=== PATIENT | male | born 1950 | race Caucasian/White ===

== ENCOUNTER → 2022-01-26 13:02 | Outpatient (BNVA) | payer MEDICARE, BC, SELFPAY | PROVIDERS: PCP Internal Medicine; Visit Provider Psychiatry & Neurology Neurology | DX: F09 Unspecified mental disorder due to known physiological condition (principal); F41.9 Anxiety disorder, unspecified; F32.A Depression, unspecified | CPT/HCPCS: 99202 ==

== ENCOUNTER → 2022-05-27 14:25 | Outpatient (BNVA) | payer MEDICARE, SELFPAY | PROVIDERS: PCP Family Medicine; Visit Provider Nurse Practitioner Family | DX: F09 Unspecified mental disorder due to known physiological condition (principal); F32.A Depression, unspecified; F41.9 Anxiety disorder, unspecified; Z79.899 Other long term (current) drug therapy | CPT/HCPCS: 99212 ==

== ENCOUNTER 2022-11-10 08:51 | Outpatient (AMB) | payer MEDICARE, SELFPAY ==
--- NOTE | 2022-11-10 08:58 | MHC.OFFVIS ---
Intake Vital Signs 11/10/22 08:59 Height 5 ft 7 in Weight 184 lb 6 oz BMI 28.9 BP 132/84 Blood Pressure Location Rt brachial Position Sitting Pulse 86 Pulse Source Pulse Oximeter Pulse Oximetry (%) 98 Oxygen Delivery Method Room Air Intake Visit Reasons: f/u Memory Loss wants to see MD only-confirmed Intake Note: Patient presents for memory loss Allergies sulfacetamide Allergy (Verified 11/10/22 09:03) Unknown Medication List - Last Reconciled 11/10/22 by Lillie Green MD citalopram 10 mg PO DAILY HPI HPI Comments History of Present Illness Details 72 y/o male patient presents with his sister for follow up of memory loss related anxiety. He lost his in May 2022 and has been having a tough time dealing with.He stopped citalopram for 3 weeks but his sister is in charge of medications .He restarted citalopram 1 weeks ago. He eats better and sleeps better, too. Pt's sister states that patient does not like to drink water, he only drinks coffee and juice. 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 [facility] Medical History Anxiety Degenerative joint disease Depression Erectile dysfunction Fatty liver HTN (hypertension) Osteopenia PVC (premature ventricular contraction) Transient global amnesia Surgical History History of surgery on lower extremity Family History Mother Dementia Father No known problems Social History Household Members: Other Household Members Other:: Ex- Alcohol intake: current Alcohol intake frequency: holidays/special occasions only Alcohol type: wine Patient Tobacco Use Status: Former Tobacco user Quit Date: stopped 50 yrs ago Physical Exam Vital Signs: Last Vital Signs Pulse 86 11/10/22 08:59 BP 132/84 11/10/22 08:59 Pulse Ox 98 11/10/22 08:59 Oxygen Delivery Method Room Air 11/10/22 08:59 BMI result Body Mass Index 28.9 Const Orientation/consciousness: patient oriented x3 Eyes Pupils: Equal, round and reactive pupils present Neuro General: patient oriented x3, tone normal, moves all extremities and no focal motor deficits Cranial nerves: Yes Facial sensation intact/muscles of mastication intact, Yes Equal, round and reactive pupils present, Yes Bilaterally intact EOM present, Yes Nystagmus not present, Yes Normal facial strength present, Yes Midline tongue present, Yes Symmetric palate elevation present and Yes Ability to bilaterally elevate shoulders present Cognition (Neuro): normal cognition Gait exam (Neuro): Other gait observations present (mild slowness, stooped) Motor exam (neuro): 5/5 motor strength present throughout and Normal motor muscle tone present throughout Coordination: [id number] test normal Psych Appearance: grossly normal Affect: normal affect Attitude: cooperative Assessment & Plan Assessment & Plan (1) Cognitive disorder: Comment: He did well on MMSE - His cognitive deficit is likely related to his poorly controlled anxiety Code(s): F09 - Unspecified mental disorder due to known physiological condition (2) Depression: Code(s): F32.A - Depression, unspecified (3) Anxiety: Code(s): F41.9 - Anxiety disorder, unspecified Plan Advised patient to continue to take citalopram 10mg qd. Advised patient to have well balanced diet. Continue exercise. \reviewed Dr. Cyr's notes. Coding Level of Care Code Est Pt Level 4 (95464) Diagnoses Cognitive disorder F09 Depression F32.A Anxiety F41.9
[2022-11-10 08:59] VITALS: BP 132/84; PULSE 86; O2SAT 98; BMI 28.9
== END 2022-11-10 09:27 | disposition home or self-care (01) ==
PROVIDERS: PCP Family Medicine; Visit Provider Psychiatry & Neurology Neurology
DX: R41.89 Other symptoms and signs involving cognitive functions and awareness (principal); F32.A Depression, unspecified; F41.9 Anxiety disorder, unspecified
CPT/HCPCS: 99214

== ENCOUNTER → 2022-11-10 08:51 | Outpatient (BNVA) | payer MEDICARE, SELFPAY | PROVIDERS: PCP Family Medicine; Visit Provider Psychiatry & Neurology Neurology | DX: F09 Unspecified mental disorder due to known physiological condition (principal); F32.A Depression, unspecified; F41.9 Anxiety disorder, unspecified; Z79.899 Other long term (current) drug therapy | CPT/HCPCS: 99212 ==

== ENCOUNTER 2023-02-20 12:56 | Outpatient (AMB) | payer MEDICARE, SELFPAY ==
--- NOTE | 2023-02-20 13:01 | MHC.OFFVIS ---
Intake Vital Signs 02/20/23 13:02 Height 5 ft 7 in Weight 194 lb 8 oz BMI 30.5 BP 146/88 H Blood Pressure Location Rt brachial Position Sitting Respiration 17 Pulse 69 Pulse Source Pulse Oximeter Pulse Oximetry (%) 99 Oxygen Delivery Method Room Air Intake Visit Reasons: f/u Memory Loss wants to see MD only-CONFIRMED Intake Note: Pt presents to the office for follow up for memory loss. He is here with his sister Ashley, who states he is doing well. Allergies sulfacetamide Allergy (Verified 02/20/23 13:01) Unknown Medication List - Last Reconciled 02/20/23 by Lillie Green MD citalopram 10 mg PO DAILY HPI HPI Comments History of Present Illness Details 72 y/o male patient presents with his sister for follow up of memory loss related anxiety. He lost his in May 2022 and has been having a tough time dealing with.He is on citalopram 10mg and his mood is stable . He eats better and sleeps better, too. Pt's sister states that patient does not like to drink water, he only drinks coffee and juice. 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 [facility] Medical History Anxiety Degenerative joint disease Depression Erectile dysfunction Fatty liver HTN (hypertension) Osteopenia PVC (premature ventricular contraction) Transient global amnesia Surgical History History of surgery on lower extremity Family History Mother Dementia Father No known problems Social History Household Members: Other Household Members Other:: Ex- Alcohol intake: current Alcohol intake frequency: holidays/special occasions only Alcohol type: wine Patient Tobacco Use Status: Former Tobacco user Quit Date: stopped 50 yrs ago Physical Exam Vital Signs: Last Vital Signs Pulse 69 02/20/23 13:02 Resp 17 02/20/23 13:02 BP 146/88 H 02/20/23 13:02 Pulse Ox 99 02/20/23 13:02 Oxygen Delivery Method Room Air 10/30/23 13:02 BMI result Body Mass Index 30.5 Const Orientation/consciousness: patient oriented x3 Eyes Pupils: Equal, round and reactive pupils present Neuro General: patient oriented x3, tone normal, moves all extremities and no focal motor deficits Cranial nerves: Yes Facial sensation intact/muscles of mastication intact, Yes Equal, round and reactive pupils present, Yes Bilaterally intact EOM present, Yes Nystagmus not present, Yes Normal facial strength present, Yes Midline tongue present, Yes Symmetric palate elevation present and Yes Ability to bilaterally elevate shoulders present Cognition (Neuro): normal cognition Gait exam (Neuro): Other gait observations present (mild slowness, stooped) Motor exam (neuro): 5/5 motor strength present throughout and Normal motor muscle tone present throughout Coordination: [id number] test normal Psych Appearance: grossly normal Affect: normal affect Attitude: cooperative Orientation What is the (year) (season) (date) (day) (month)?: year, season, date, day and month Where are we (state) (county) (town or city) (hospital) (floor)?: state, town or city, hospital/clinic and floor Registration Name of 3 unrelated objects clearly and slowly, then ask patient to repeat all 3 of them. (1st repeat determines score. Make sure they can repeat all three): object 1, object 2 and object 3 Attention & Calculation (CHOOSE ONE) Spell WORLD backwards (DLROW): 4 letters Recall Ask patient to repeat the 3 items from question #3.: object 2 Language Show patient a wristwatch & ask what it is. Repeat for pencil.: watch and pencil Ask the patient to repeat the phrase 'No ifs, ands, or buts' after you.: correct Ask the patient to 'take a piece of paper with their right hand' 'fold paper in half' 'place paper on floor': take paper in right hand, fold paper in half and place paper on floor Print the sentence 'CLOSE YOUR EYES' on a piece. If patient actually closes eyes then score.: followed written direction Give patient a blank piece of paper & ask to write a sentence. Score if it contains a noun & verb.: sentence contains subject and verb Ask patient to copy figure of intersecting pentagons exactly. Score if all 10 angles & 2 intersects are included.: all 10 angles present & 2 are intersected Score Score: 26 Assessment & Plan Assessment & Plan (1) Cognitive disorder: Comment: He did well on MMSE - His cognitive deficit is likely related to his poorly controlled anxiety Code(s): F09 - Unspecified mental disorder due to known physiological condition (2) Depression: Code(s): F32.A - Depression, unspecified (3) Anxiety: Code(s): F41.9 - Anxiety disorder, unspecified Plan Advised patient to continue to take citalopram 10mg qd. Advised patient to have well balanced diet. Continue exercise. I will trial him on namenda XR 7 mg qd Medications: New memantine (Namenda XR) 7 mg PO DAILY 30 ea 6RF Coding Level of Care Code Est Pt Level 4 (40096) Diagnoses Cognitive disorder F09 Depression F32.A Anxiety F41.9
[2023-02-20 13:02] VITALS: BP 146/88; PULSE 69; RESP 17; O2SAT 99; BMI 30.5
== END 2023-02-20 13:28 | disposition home or self-care (01) ==
PROVIDERS: PCP Family Medicine; Visit Provider Psychiatry & Neurology Neurology
DX: F41.9 Anxiety disorder, unspecified (principal); F06.70 Mild neurocognitive disorder due to known physiological condition without behavioral disturbance; F32.A Depression, unspecified; Z63.4 Disappearance and death of family member
CPT/HCPCS: 99214

== ENCOUNTER → 2023-02-20 12:56 | Outpatient (BNVA) | payer MEDICARE, SELFPAY | PROVIDERS: PCP Family Medicine; Visit Provider Psychiatry & Neurology Neurology | DX: F09 Unspecified mental disorder due to known physiological condition (principal); F32.A Depression, unspecified; F41.9 Anxiety disorder, unspecified | CPT/HCPCS: 99212 ==

== ENCOUNTER 2023-08-22 14:03 | Outpatient (AMB) | payer MEDICARE, SELFPAY ==
--- NOTE | 2023-08-22 14:05 | A.OFFVIS_ITS ---
Vital Signs 08/22/23 14:06 Height 5 ft 7 in Weight 203 lb 6 oz BMI 31.8 BP 146/80 H Blood Pressure Location Rt brachial Position Sitting Respiration 16 Pulse 84 Pulse Source Pulse Oximeter Pulse Oximetry (%) 97 Oxygen Delivery Method Room Air Intake Visit Reasons: 6 mnts f/u for Memory loss-CONF Intake Note: Pt presents for 6 month follow up for memory los. Transformation Lead Required: No Allergies sulfacetamide Allergy (Verified 08/22/23 14:06) Unknown Medication List - Last Reconciled 08/22/23 by Lillie Green MD citalopram 10 mg PO DAILY memantine (Namenda XR) 7 mg PO DAILY HPI Comments Details: 73 y/o male patient presents with his sister for follow up of memory loss related anxiety. He lost his in May 2022 and has been having a tough time dealing with.He is on citalopram 10mg and his mood is stable . He eats better and sleeps better, too. Pt's sister states that patient does not like to drink water, he only drinks coffee and juice. 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 [facility] Medical History Degenerative joint disease Erectile dysfunction Fatty liver Depression Anxiety Transient global amnesia HTN (hypertension) Osteopenia PVC (premature ventricular contraction) Surgical History History of surgery on lower extremity Family History Mother Dementia Father No known problems Social History Household Members: Other Household Members Other:: Ex- Alcohol intake: current Alcohol intake frequency: holidays/special occasions only Alcohol type: wine Patient Tobacco Use Status: Former Tobacco user Quit Date: stopped 50 yrs ago Physical Exam Vital Signs: Last Vital Signs Pulse 84 08/22/23 14:06 Resp 16 08/22/23 14:06 BP 146/80 H 08/22/23 14:06 Pulse Ox 97 08/22/23 14:06 Oxygen Delivery Method Room Air 08/22/23 14:06 BMI result Body Mass Index 31.8 Const Orientation/consciousness: patient oriented x3 Eyes Pupils: Equal, round and reactive pupils present Neuro Other: word finding difficulties paraphasias MOCA 6 General: patient oriented x3, tone normal, moves all extremities and no focal motor deficits Cranial nerves: Yes Facial sensation intact/muscles of mastication intact, Yes Equal, round and reactive pupils present, Yes Bilaterally intact EOM present, Yes Nystagmus not present, Yes Normal facial strength present, Yes Midline tongue present, Yes Symmetric palate elevation present and Yes Ability to bilaterally elevate shoulders present Cognition (Neuro): normal cognition Gait exam (Neuro): Other gait observations present (mild slowness, stooped) Motor exam (neuro): 5/5 motor strength present throughout and Normal motor muscle tone present throughout Coordination: [id number] test normal Psych Appearance: grossly normal Affect: normal affect Attitude: cooperative Assessment & Plan Assessment & Plan (1) Cognitive disorder: Comment: He did well on MMSE - His cognitive deficit is likely related to his poorly controlled anxiety Code(s): F09 - Unspecified mental disorder due to known physiological condition Category: Medical (2) Depression: Code(s): F32.A - Depression, unspecified Category: Medical (3) Anxiety: Code(s): F41.9 - Anxiety disorder, unspecified Category: Medical Plan Continue citalopram 10mg qd. Advised patient to have well balanced diet. Continue exercise. Increase namenda XR 14 mg qd Medications: New memantine (Namenda XR) 14 mg PO DAILY 14 ea 0RF memantine 21 mg PO DAILY 14 ea 0RF memantine 28 mg PO DAILY 30 ea 6RF Discontinued memantine (Namenda XR) Discontinued Reason: Doctor's Order 7 mg PO DAILY 30 ea 6RF Coding Level of Care Code Est Pt Level 4 (30417) Diagnoses Cognitive disorder F09 Depression F32.A Anxiety F41.9
[2023-08-22 14:06] VITALS: BP 146/80; PULSE 84; RESP 16; O2SAT 97; BMI 31.8
== END 2023-08-22 14:45 | disposition home or self-care (01) ==
PROVIDERS: PCP Family Medicine; Visit Provider Psychiatry & Neurology Neurology
DX: R41.89 Other symptoms and signs involving cognitive functions and awareness (principal); F32.A Depression, unspecified; F41.9 Anxiety disorder, unspecified
CPT/HCPCS: 99214

== ENCOUNTER → 2023-08-22 14:03 | Outpatient (BNVA) | payer MEDICARE, SELFPAY | PROVIDERS: PCP Family Medicine; Visit Provider Psychiatry & Neurology Neurology | DX: F09 Unspecified mental disorder due to known physiological condition (principal); F32.A Depression, unspecified; F41.9 Anxiety disorder, unspecified | CPT/HCPCS: 99212 ==

== ENCOUNTER 2024-07-08 11:03 | Outpatient (AMB) | payer MEDICARE, SELFPAY ==
[2024-07-08 11:18] VITALS: PULSE 70; O2SAT 97
--- NOTE | 2024-07-08 11:18 | MHC.OFFVIS ---
Vital Signs 07/08/24 11:18 Height 5 ft 7 in Pulse 70 Pulse Source Pulse Oximeter Pulse Oximetry (%) 97 Oxygen Delivery Method Room Air Intake Visit Reasons: Follow up Intake Note: Patient following up for memory loss, memantine medication was increased. 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 He lost his in May 2022 and has been having a tough time dealing with.He is on citalopram 10mg and his mood is stable . He eats better and sleeps better, too. 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 [facility]No new complaints [facility] Medical History Degenerative joint disease Erectile dysfunction Fatty liver Depression Anxiety Transient global amnesia HTN (hypertension) Osteopenia PVC (premature ventricular contraction) Surgical History History of surgery on lower extremity Family History Mother Dementia Father No known problems Social History Household Members: Other Household Members Other:: Ex- Alcohol intake: current Alcohol intake frequency: holidays/special occasions only Alcohol type: wine Patient Tobacco Use Status: Former Tobacco user Physical Exam Vital Signs: Last Vital Signs Pulse 70 07/08/24 11:18 Pulse Ox 97 07/08/24 11:18 Oxygen Delivery Method Room Air 03/17/25 11:18 Eyes Pupils: Equal, round and reactive pupils present Neuro Other: word finding difficulties paraphasias confabulates Oriented to person DIsoriented to time and place. General: tone normal and moves all extremities Cranial nerves: Yes Facial sensation intact/muscles of mastication intact, Yes Equal, round and reactive pupils present, Yes Bilaterally intact EOM present, Yes Nystagmus not present, Yes Normal facial strength present, Yes Midline tongue present, Yes Symmetric palate elevation present and Yes Ability to bilaterally elevate shoulders present Cognition (Neuro): abnormal cognition Gait exam (Neuro): Other gait observations present (mild slowness, stooped) Motor exam (neuro): 5/5 motor strength present throughout and Normal motor muscle tone present throughout Coordination: [id number] test normal Psych Appearance: grossly normal Affect: normal affect Attitude: cooperative Assessment & Plan Assessment & Plan (1) Cognitive disorder: Comment: He did well on MMSE - His cognitive deficit is likely related to his poorly controlled anxiety Code(s): F09 - Unspecified mental disorder due to known physiological condition Category: Medical (2) Depression: Code(s): F32.A - Depression, unspecified Category: Medical (3) Anxiety: Code(s): F41.9 - Anxiety disorder, unspecified Category: Medical Plan Continue citalopram 10mg qd. Advised patient to have well balanced diet. Continue exercise. Continue namenda XR 28 mg qd Medications: Discontinued memantine (Namenda XR) Discontinued Reason: Patient no longer taking 14 mg PO DAILY 14 ea 0RF memantine Discontinued Reason: Patient no longer taking 21 mg PO DAILY 14 ea 0RF Coding Level of Care Code Est Pt Level 4 (36722) Diagnoses Cognitive disorder F09 Depression F32.A Anxiety F41.9
== END 2024-07-08 11:55 | disposition home or self-care (01) ==
PROVIDERS: PCP Internal Medicine; Visit Provider Psychiatry & Neurology Neurology
DX: R41.89 Other symptoms and signs involving cognitive functions and awareness (principal); F32.A Depression, unspecified; F41.9 Anxiety disorder, unspecified
CPT/HCPCS: 99214

== ENCOUNTER → 2024-07-08 11:03 | Outpatient (BNVA) | payer MEDICARE, SELFPAY | PROVIDERS: PCP Internal Medicine; Visit Provider Psychiatry & Neurology Neurology | DX: F32.A Depression, unspecified (principal); F41.9 Anxiety disorder, unspecified; F09 Unspecified mental disorder due to known physiological condition | CPT/HCPCS: 99212 ==